=== PATIENT | female | born 1940 | race African-American/Black ===

== ENCOUNTER 2020-08-19 16:26 | Emergency (ER) | payer MEDICARE ==
[~2020-08-19] VITALS: Ht 172.7 cm; Wt 104.5 kg
--- NOTE | 2020-08-19 16:39 | PHYS DOC ---
General Adult EDM: Chief Complaint: GI PROBLEM HPI: HPI: Patient is a 80 year old female who was brought here by EMS from [facility] for evaluation of choking episode. Patient says she was eating some chicken at [facility] when she feels like it stuck in the back of her throat, patient was having trouble breathing, causes have severe panic. EMS were called to take her here for evaluation. On route patient said she started feeling better. Upon arrival to room, patient belched multiple times and she says she feel much better now. Patient said on last Sunday she was eating and had the same episode but it resolved quickly after she drank Pepsi. Patient denies any chest pain or any trouble breathing at this time, denies any abdominal pain, no nausea vomiting. Review of Systems: Review of Systems: Constitutional: Denies fever or chills. [] Eyes: Denies change in visual acuity. [] HENT: Denies nasal congestion or sore throat. [] Respiratory: Denies cough or shortness of breath. [] Cardiovascular: Denies chest pain or edema. [] GI: Denies abdominal pain, nausea, vomiting, bloody stools or diarrhea. [] : Denies dysuria. [] Musculoskeletal: Denies back pain or joint pain. [] Integument: Denies rash. [] Neurologic: Denies headache, focal weakness or sensory changes. [] Endocrine: Denies polyuria or polydipsia. [] Lymphatic: Denies swollen glands. [] Psychiatric: Denies depression or anxiety. [] Heart Score: C/O Chest Pain: N/A Risk Factors: Risk Factors: DM, Current or recent (<one month) smoker, HTN, HLP, family history of CAD, obesity. Risk Scores: Score 0 - 3: 2.5% MACE over next 6 weeks - Discharge Home Score 4 - 6: 20.3% MACE over next 6 weeks - Admit for Clinical Observation Score 7 - 10: 72.7% MACE over next 6 weeks - Early Invasive Strategies Physical Exam: PE: Constitutional: Well developed, well nourished, no acute distress, non-toxic appearance. [] HENT: Normocephalic, atraumatic, bilateral external ears normal, oropharynx moist, no oral exudates, nose normal. [] Eyes: PERRLA, EOMI, conjunctiva normal, no discharge. [] Neck: Normal range of motion, no tenderness, supple, no stridor. [] Cardiovascular:Heart rate regular rhythm, no murmur [] Lungs & Thorax: Bilateral breath sounds clear to auscultation [] Abdomen: Bowel sounds normal, soft, no tenderness, no masses, no pulsatile masses. [] Skin: Warm, dry, no erythema, no rash. [] Back: No tenderness, no CVA tenderness. [] Extremities: No tenderness, no cyanosis, no clubbing, ROM intact, no edema. [] Neurologic: Alert and oriented X 3, normal motor function, normal sensory function, no focal deficits noted. [] Psychologic: Affect normal, judgement normal, mood normal. [] EKG: EKG: [] Radiology/Procedures: Radiology/Procedures: [] Course & Med Decision Making: Course & Med Decision Making Pertinent Labs and Imaging studies reviewed. (See chart for details) Patient was able to drink a bottle of Sprite and was able to keep it down. She felt much better. Patient will be discharged home, she will need to follow- up with GI doctor for outpatient evaluation with EGD. Patient was amenable to plan of care. Dragon Disclaimer: Dragon Disclaimer: This electronic medical record was generated, in whole or in part, using a voice recognition dictation system. Departure Departure Impression: Primary Impression: Esophageal spasm Disposition: HOME / SELF CARE / HOMELESS Condition: IMPROVED Referrals: LAN ROSADO MD (PCP) MARIA MCGINNIS MD Please call this GI doctor for outpatient evaluation next week. Patient Instructions: Esophageal Spasm Additional Instructions: Thank you for visiting our Emergency Department. We appreciate you trusting us with your care. If any additional problems come up don't hesitate to return to visit us. Please follow up with your primary care provider so they can plan additional care if needed and know about the problem that you had. If symptoms worsen come back to the Emergency Department. Any concerning symptoms that start such as chest pain, shortness of air, weakness or numbness on one side of the body, running high fevers or any other concerning symptoms return to the ER. IVAN WHALEY DO Aug 19, 2020 16:39
[2020-08-19 17:45] VITALS: BP 149/67
== END 2020-08-19 17:50 | disposition home or self-care (01) ==
LOC: ER 16:26
DX: K22.4 Dyskinesia of esophagus (principal)
CPT/HCPCS: 99284

== ENCOUNTER 2020-12-01 11:34 | Emergency (ER) | payer MEDICARE ==
[~2020-12-01] VITALS: Ht 172.7 cm; Wt 103.6 kg
--- NOTE | 2020-12-01 11:56 | EKG ---
[facility] [address] [place] [address] Test Date: 2020-12-01 Test Time: 11:40:53 Pat Name: TRACIE VIEYRA Department: Room: Gender: F [employer] Member: : 1940 Requested By: IVAN WHALEY Order Number: [id number] Reading MD: Measurements Intervals [place] Rate: 94 P: 37 [place]: 146 QRS: -5 QRSD: 64 T: 18 QT: 342 QTc: 433 Interpretive Statements SINUS RHYTHM ATRIAL PREMATURE COMPLEX(ES) LEFTWARD AXIS NO SPECIFIC ECG ABNORMALITIES RI6.02 No previous ECG available for comparison
[2020-12-01 12:04] LABS: BASO # 0.1 x10^3/uL (0.0-0.2); BASO % 1 % (0-3); EOS # 0.2 x10^3/uL (0.0-0.7); EOS % 2 % (0-3); HEMATOCRIT 38.4 % (36.0-47.0); HEMOGLOBIN 12.7 g/dL (12.0-15.5); LYMPH # 6.6 x10^3/uL (1.0-4.8); LYMPH % 58 % (24-48); MEAN CORPUSCULAR HEMOGLOBIN 28 pg (25-35); MEAN CORPUSCULAR HGB CONC 33 g/dL (31-37); MEAN CORPUSCULAR VOLUME 84 fL (79-100); MONO # 0.7 x10^3/uL (0.0-1.1); MONO % 6 % (0-9); NEUT # 3.7 x10^3/uL (1.8-7.7); NEUT % 32 % (31-73); PLATELET COUNT 241 x10^3/uL (140-400); RED BLOOD COUNT 4.55 x10^6/uL (3.50-5.40); RED CELL DISTRIBUTION WIDTH 15.3 % (11.5-14.5); WHITE BLOOD COUNT 11.4 x10^3/uL (4.0-11.0)
--- NOTE | 2020-12-01 12:18 | RAD ---
EXAM: Chest, single view. HISTORY: Chest pain. COMPARISON: None. FINDINGS: A frontal view of the chest is obtained. There is no infiltrate, pleural effusion or pneumo thorax. The heart is normal in size. There is a cardiac pacemaker in expected position. There is a sm all nodular density overlying the right costophrenic angle. IMPRESSION: 1. No acute pulmonary finding. 2. Small nodular density overlying the right costophrenic angle. This may be artifactual. Short-term radiographic follow-up can be performed to exclude a noncalcified nodule in this location. Electronically signed by: Ashlee Basilio MD (12/01/2020 12:16 PM) [id number]
[2020-12-01 12:21] LABS: CALCIUM 10.8 mg/dL (8.5-10.1); GFR 64.9; POTASSIUM 3.4 mmol/L (3.5-5.1)
[2020-12-01 12:26] LABS: ALBUMIN 3.7 g/dL (3.4-5.0); ALBUMIN/GLOBULIN RATIO 0.8 (1.0-1.7); MAGNESIUM 1.8 mg/dL (1.8-2.4); TOTAL BILIRUBIN 0.5 mg/dL (0.2-1.0); TOTAL PROTEIN 8.3 g/dL (6.4-8.2)
[2020-12-01 15:07] VITALS: BP 157/72
--- NOTE | 2020-12-01 15:16 | PHYS DOC ---
Past Medical History Past Medical History: Arthritis, Hypertension Past Surgical History: Hysterectomy, Tubal ligation Additional Past Surgical Histo: PACEMAKER PLACEMENT, Smoking Status: Never Smoker Alcohol Use: None General Adult EDM: Chief Complaint: GI PROBLEM HPI: HPI: Patient is a 80 year old female who present to ER for evaluation of esophagus pain after she was eating some chicken about 30 minutes ago. Patient said initially she felt like the chicken stuck in her throat and then it was slowly advanced into her esophagus and into her stomach. Therefore she came here for evaluation. Patient denies any chest pain, no trouble breathing, no cough, no fever. Patient says she has history of acid reflux. Review of Systems: Review of Systems: Constitutional: Denies fever or chills. [] Eyes: Denies change in visual acuity. [] HENT: Denies nasal congestion or sore throat. [] Respiratory: Denies cough or shortness of breath. [] Cardiovascular: Denies chest pain or edema. [] GI: Denies abdominal pain, nausea, vomiting, bloody stools or diarrhea. Positive for epigastric pain, esophagus pain : Denies dysuria. [] Musculoskeletal: Denies back pain or joint pain. [] Integument: Denies rash. [] Neurologic: Denies headache, focal weakness or sensory changes. [] Endocrine: Denies polyuria or polydipsia. [] Lymphatic: Denies swollen glands. [] Psychiatric: Denies depression or anxiety. [] Heart Score: C/O Chest Pain: N/A Risk Factors: Risk Factors: DM, Current or recent (<one month) smoker, HTN, HLP, family history of CAD, obesity. Risk Scores: Score 0 - 3: 2.5% MACE over next 6 weeks - Discharge Home Score 4 - 6: 20.3% MACE over next 6 weeks - Admit for Clinical Observation Score 7 - 10: 72.7% MACE over next 6 weeks - Early Invasive Strategies Allergies: Allergies: Allergies Coded Allergies Type Severity Reaction Last Updated Verified barium sulfate Allergy Intermediate 08/19/20 Yes Physical Exam: PE: Constitutional: Well developed, well nourished, no acute distress, non-toxic appearance. [] HENT: Normocephalic, atraumatic, bilateral external ears normal, oropharynx moist, no oral exudates, nose normal. [] Eyes: PERRLA, EOMI, conjunctiva normal, no discharge. [] Neck: Normal range of motion, no tenderness, supple, no stridor. [] Cardiovascular:Heart rate regular rhythm, no murmur [] Lungs & Thorax: Bilateral breath sounds clear to auscultation [] Abdomen: Bowel sounds normal, soft, no tenderness, no masses, no pulsatile masses. [] Skin: Warm, dry, no erythema, no rash. [] Back: No tenderness, no CVA tenderness. [] Extremities: No tenderness, no cyanosis, no clubbing, ROM intact, no edema. [] Neurologic: Alert and oriented X 3, normal motor function, normal sensory function, no focal deficits noted. [] Psychologic: Affect normal, judgement normal, mood normal. [] Current Patient Data: Labs: Laboratory Tests Test 12/01/20 11:50 White Blood Count 11.4 x10^3/uL (4.0-11.0) H Red Blood Count 4.55 x10^6/uL (3.50-5.40) Hemoglobin 12.7 g/dL (12.0-15.5) Hematocrit 38.4 % (36.0-47.0) Mean Corpuscular Volume 84 fL (79-100) Mean Corpuscular Hemoglobin 28 pg (25-35) Mean Corpuscular Hemoglobin Concent 33 g/dL (31-37) Red Cell Distribution Width 15.3 % (11.5-14.5) H Platelet Count 241 x10^3/uL (140-400) Neutrophils (%) (Auto) 32 % (31-73) Lymphocytes (%) (Auto) 58 % (24-48) H Monocytes (%) (Auto) 6 % (0-9) Eosinophils (%) (Auto) 2 % (0-3) Basophils (%) (Auto) 1 % (0-3) Neutrophils # (Auto) 3.7 x10^3/uL (1.8-7.7) Lymphocytes # (Auto) 6.6 x10^3/uL (1.0-4.8) H Monocytes # (Auto) 0.7 x10^3/uL (0.0-1.1) Eosinophils # (Auto) 0.2 x10^3/uL (0.0-0.7) Basophils # (Auto) 0.1 x10^3/uL (0.0-0.2) Sodium Level 141 mmol/L (136-145) Potassium Level 3.4 mmol/L (3.5-5.1) L Chloride Level 104 mmol/L (98-107) Carbon Dioxide Level 28 mmol/L (21-32) Anion Gap 9 (6-14) Blood Urea Nitrogen 10 mg/dL (7-20) Creatinine 1.0 mg/dL (0.6-1.0) Estimated GFR (Cockcroft-Gault) 64.9 BUN/Creatinine Ratio 10 (6-20) Glucose Level 108 mg/dL (70-99) H Calcium Level 10.8 mg/dL (8.5-10.1) H Magnesium Level 1.8 mg/dL (1.8-2.4) Total Bilirubin 0.5 mg/dL (0.2-1.0) Aspartate Amino Transferase (AST) 10 U/L (15-37) L Alanine Aminotransferase (ALT) 11 U/L (14-59) L Alkaline Phosphatase 106 U/L (46-116) Troponin I Quantitative < 0.017 ng/mL (0.000-0.055) VU-Qgg-G-Type Natriuretic Peptide 240 pg/mL (0-449) Total Protein 8.3 g/dL (6.4-8.2) H Albumin 3.7 g/dL (3.4-5.0) Albumin/Globulin Ratio 0.8 (1.0-1.7) L Lipase 150 U/L (73-393) Laboratory Tests 12/01/20 11:50 Laboratory Tests 12/01/20 11:50 Vital Signs: Vital Signs Date Time Temp Pulse Resp B/P (MAP) Pulse Ox O2 Delivery O2 Flow Rate FiO2 12/01/20 14:37 61 146/65 (92) 99 Room Air 12/01/20 11:35 98.4 20 98.4 EKG: EKG: EKG was done at 1145, heart rate 94 bpm, sinus rhythm, atrial premature complexes, left axis deviation Radiology/Procedures: Radiology/Procedures: [][facility] [address] [place] [address] IMAGING REPORT Signed PATIENT: TRACIE VIEYRA EACCOUNT: [id number] : 1940 LOCATION: ER AGE: 80 SEX: F EXAM STATUS: PRE ER ORD. PHYSICIAN: IVAN WHALEY DO REASON: chest pain, FEELS LIKE A PIECE OF CHICKEN IS STUCK IN HER ESOPHAGUS PROCEDURE: CHEST AP ONLY EXAM: Chest, single view. HISTORY: Chest pain. COMPARISON: None. FINDINGS: A frontal view of the chest is obtained. There is no infiltrate, pleural effusion or pneumothorax. The heart is normal in size. There is a cardiac pacemaker in expected position. There is a small nodular density overlying the right costophrenic angle. IMPRESSION: 1. No acute pulmonary finding. 2. Small nodular density overlying the right costophrenic angle. This may be artifactual. Short-term radiographic follow-up can be performed to exclude a noncalcified nodule in this location. Electronically signed by: Ashlee Graff MD (12/01/2020 12:16 PM) [id number] DICTATED and SIGNED BY: ASHLEE GRAFF MD DATE: 12/01/20 [id number] Course & Med Decision Making: Course & Med Decision Making Pertinent Labs and Imaging studies reviewed. (See chart for details) Patient is a 80-year-old female who present to ER due to esophageal spasm after swallowing a piece of chicken. Patient was given a bottle of Sprite to drink in ER, patient was able to drink it and kept it down. She was observed here for several hours, she felt much better. Patient was discharged home. Patient was instructed to follow-up with a GI specialist for an EGD. Patient is amenable to plan of care Dragon Disclaimer: Dragon Disclaimer: This electronic medical record was generated, in whole or in part, using a voice recognition dictation system. Departure Departure Impression: Primary Impression: Esophageal spasm Disposition: HOME / SELF CARE / HOMELESS Condition: STABLE Referrals: TALHA GARCIA (PCP) MARIA MCGINNIS MD Please follow up with this GI doctor next week for outpatient evaluation. Patient Instructions: Esophageal Spasm Additional Instructions: Thank you for visiting our Emergency Department. We appreciate you trusting us with your care. If any additional problems come up don't hesitate to return to visit us. Please follow up with your primary care provider so they can plan add itional care if needed and know about the problem that you had. If symptoms worsen come back to the Emergency Department. Any concerning symptoms that start such as chest pain, shortness of air, weakness or numbness on one side of the body, running high fevers or any other concerning symptoms return to the ER. IVAN WHALEY DO Dec 01, 2020 15:15
== END 2020-12-01 15:50 | disposition home or self-care (01) ==
LOC: ER 11:34
DX: K22.4 Dyskinesia of esophagus (principal); I10 Essential (primary) hypertension; Z95.0 Presence of cardiac pacemaker; Z90.710 Acquired absence of both cervix and uterus; Z98.51 Tubal ligation status; Z88.2 Allergy status to sulfonamides
CPT/HCPCS: 36415; 71045; 80053; 83690; 83735; 83880; 84484; 85025; 93005; 99285-25